=== PATIENT | female | born 1945 | race African-American/Black ===

== ENCOUNTER 2018-06-23 06:50 | Day surgery (SDC) | payer OTHER ==
[2018-06-17 16:53] VITALS: BMI 28.5
[2018-06-23] MEDS ORDERED: PROPOFOL 20 ML ONE ×3 (08:12)
[2018-06-23] MEDS ORDERED: LIDOCAINE HCL/PF 2% SDV 5ML VIAL ONE (08:12)
[2018-06-23 08:48] VITALS: TEMP 98.1
[2018-06-23 09:22] VITALS: BP 130/81; PULSE 65
--- NOTE | 2018-06-24 10:56 | PATH ---
Surgical Pathology Report Patient Name: [facility]. Rec. #: [id number] /Age/Gender: 1945 (Age: 73) / F Account: [id number] Location: [facility] Taken: 06/23/2018 Received: 06/23/2018 Reported: 06/24/2018 Physicians: Darrell Estrada M.D. Specimen(s) Received SIGMOID COLON Clinical History Rectal bleed Postoperative diagnosis: Diverticulosis, polyp, external hemorrhoids Final Diagnosis SIGMOID COLON, POLYP, BIOPSY: TUBULAR ADENOMA. Electronically Signed Nichole Lloyd M.D. Gross Description Received in formalin, labeled "polyp sigmoid colon" is a estrada, irregular portion of soft tissue measuring 0.3 cm. in greatest dimension. The specimen is submitted in toto in one cassette. /06/23/201806/23/2018
== END 2018-06-23 09:20 | disposition home or self-care (01) ==
LOC: FASU-ENDO 06:50
PROVIDERS: ATTEND Internal Medicine Gastroenterology
PROC: 0DBN8ZX Excision of Sigmoid Colon, Via Natural or Artificial Opening Endoscopic, Diagnostic (ICD-10-PCS; principal; 2018-06-23 08:19)
DX: D12.5 Benign neoplasm of sigmoid colon (principal); K62.5 Hemorrhage of anus and rectum; K57.30 Diverticulosis of large intestine without perforation or abscess without bleeding; K64.4 Residual hemorrhoidal skin tags
CPT/HCPCS: 88305-TC

== ENCOUNTER 2024-07-20 08:29 | Day surgery (SDC) | payer OTHER ==
[2024-07-17 14:08] VITALS: BMI 28.9
[2024-07-20] MEDS ORDERED: KETOROLAC TROMETHAMINE 60 MG/2 ML VIAL ONE (10:30)
[2024-07-20] MEDS ORDERED: VANCOMYCIN 1,000 MG VIAL (RESTRICTED TO ID ONLY) ONE (10:30)
[2024-07-20] MEDS ORDERED: BUPIVACAINE HCL/PF 2.5 MG/ML - 30 ML VIAL IJ ONE (10:30)
[2024-07-20] MEDS ORDERED: BUPIVACAINE HCL/PF 0.5% (5 MG/ML) 30 ML VIAL IJ ONE (11:28)
[2024-07-20] MEDS ORDERED: FENTANYL CITRATE/PF 50 MCG/ML VIAL ONE (12:10)
[2024-07-20] MEDS ORDERED: MIDAZOLAM HCL 2 MG/2 ML SINGLE DOSE VIAL ONE (12:10)
[2024-07-20] MEDS ORDERED: ACETAMINOPHEN INJECTION 100 ML ONE (12:34)
[2024-07-20] MEDS ORDERED: PROPOFOL 40 ML ONE (12:37)
[2024-07-20] MEDS ORDERED: TRANEXAMIC ACID 1000 MG/10 ML VIAL ONE ×2 (13:14→14:03)
[2024-07-20] MEDS ORDERED: METOPROLOL TARTRATE 5 MG/5 ML VIAL ONE (13:20)
[2024-07-20] MEDS ORDERED: PROPOFOL 20 ML ONE (13:47)
[2024-07-20] MEDS ORDERED: MAG HYDROX/AL HYDROX/SIMETH 30 ML UNIT-DOSE CUP PO PRN (15:04)
[2024-07-20] MEDS ORDERED: ONDANSETRON 4 MG/2 ML VIAL IVPUSH PRN ×2 (15:04→15:30)
[2024-07-20] MEDS ORDERED: LACTATED RINGERS SOLUTION 1,000 ML IV SCH (15:15)
[2024-07-20] MEDS ORDERED: PROMETHAZINE HCL 25 MG/1 ML VIAL IVPB PRN (15:30)
[2024-07-20] MEDS ORDERED: oxyCODONE HCL 5 MG TABLET PO PRN (15:30)
[2024-07-20] MEDS: LACTATED RINGERS SOLUTION 1,000 ML IV SCH ×2 (17:50)
[2024-07-20] MEDS: TRANEXAMIC ACID 1000 MG/10 ML VIAL IVPUSH ONE (17:50)
[2024-07-20] MEDS: CEFAZOLIN 2 GM in DEXTROSE 5%-WATER - 50 ML IVPB ONE (17:50)
[2024-07-20] MEDS: ACETAMINOPHEN 1000 MG/100 ML BAG IVPB SCH (21:00)
[2024-07-20] MEDS: ASPIRIN 81 MG CHEWABLE TABLETS PO SCH (21:19)
[2024-07-20] MEDS: SENNOSIDES/DOCUSATE COMBO (SENNA PLUS) TABLET (UD) PO SCH (21:19)
[2024-07-20] MEDS: CEFAZOLIN 1 GM in DEXTROSE 5%-WATER - 50 ML IVPB SCH (21:19)
[2024-07-21 03:04] VITALS: RESP 18
[2024-07-21 08:12] LABS: HEMATOCRIT 34.4 % (32.4-45.2); HEMOGLOBIN 11.4 G/dL (10.7-15.3); MCH 30.4 pg (25.7-33.7); MCHC 33.1 g/dl (32.0-36.0); MEAN PLT VOLUME 9.3 fl (7.5-11.1); PLATELET COUNT 218.9 10^3/uL (134-434); RBC 3.74 10^6/uL (3.60-5.2); WHITE BLOOD COUNT 9.7 10^3/uL (4.0-10.8)
[2024-07-21 08:43] LABS: CALCIUM 8.9 mg/dl (8.5-10.1); CREATININE 0.6 mg/dl (0.6-1.3); POTASSIUM 3.9 mmol/L (3.5-5.1)
[2024-07-21] MEDS: NIFEdipine E.R. 30 MG TABLET PO SCH (09:17)
[2024-07-21] MEDS: amLODIPine BESYLATE 5 MG TABLET (FP) PO SCH (09:17)
[2024-07-21] MEDS: PANTOPRAZOLE 40 MG TABLET PO SCH (09:17)
[2024-07-21] MEDS: FLUTICASONE PROP 0.05% 16 GM NASAL SPRAY NS SCH (09:23)
[2024-07-21] MEDS: ACETAMINOPHEN 500 MG TABLET (FP) PO SCH (13:22)
[2024-07-21 14:17] VITALS: BP 139/68; PULSE 76; TEMP 98.2
[2024-07-21] MEDS ORDERED: ROSUVASTATIN CA 10 MG TABLET PO SCH (22:00)
== END 2024-07-21 17:42 | disposition home or self-care (01) ==
LOC: FASUSAT 08:29 → FM/S 17:25 → FASUSAT 07-21 17:42
PROC: 8E0Y0CZ Robotic Assisted Procedure of Lower Extremity, Open Approach (ICD-10-PCS; 2024-07-20)
PROC: 0SRC0JA Replacement of Right Knee Joint with Synthetic Substitute, Uncemented, Open Approach (ICD-10-PCS; principal; 2024-07-20 13:09)
DX: M17.11 Unilateral primary osteoarthritis, right knee (principal)
CPT/HCPCS: 20985; 27447; C1776; S2900; 36415; 73560-TC-RT-FY; 80048; 85027; 94760; 97010-GP; 97116-GP; J0131